=== PATIENT | female | born 1960 | race Caucasian/White ===

== ENCOUNTER 2018-11-01 21:05 | Emergency (ER) | payer OTHER ==
[~2018-11-01] VITALS: Ht 162.6 cm; Wt 79.4 kg
--- OUTSIDE RECORDS SUMMARY | 2018-11-01 21:08 | XMS REPORT ---
[facility] Address Unknown Phone Unavailable Care Team Providers Care Cloth Tester Name Role Phone Unavailable Unavailable Problems This patient has no known problems. Allergies, Adverse Reactions, Alerts This patient has no known allergies or adverse reactions. Medications This patient has no known medications. Results Test Description Test Time Test Comments Text Results Atomic Results Result Comments SCR MAMM BILATERAL MITCHELL CAD DIGITAL 2018-06-13 12:19:43 - SCR MAMM BILATERAL MITCHELL CAD DIGITALBILATERAL DIGITAL SCREENING MAMMOGRAM 3D/2D WITH CAD: 06/06/2018CLINICAL: Asymptomatic. Digital breast tomosynthesis was performed in addition to routine CC and MLO views. Current mammographic images were evaluated by either a [employer] or an [employer] version 7.2 computer aided detection system. Comparison is made to exams dated 05/13/2016 mammogram, 05/13/2015 mammogram, and 05/30/2013 mammogram - [facility]. There are scattered fibroglandular tissues in both breasts. There are benign calcifications in both breasts. There are also post operative findings in both breasts. No suspicious mass, architectural distortion, malignant type calcification, or lymph node abnormality detected. Breast architecture is stable compared to prior exams.IMPRESSION: BENIGNThere is no mammographic evidence of malignancy. Resume annual screening mammography in one year. Dolores Carter M.D. el/:06/13/2018 12:19:43 Attending Technologist: Maryanne Rain MM, [facility] Technologist: Lolita Rouse MM, [facility]ographyletter sent: BIRADS 1-2 Normal Mammogram BI-RADS: 2 Benign
[2018-11-01 22:10] VITALS: BP 110/66
== END 2018-11-01 22:28 | disposition home or self-care (01) ==
LOC: ER 21:05
DX: H81.10 Benign paroxysmal vertigo, unspecified ear (principal); T38.0X5A Adverse effect of glucocorticoids and synthetic analogues, initial encounter; I10 Essential (primary) hypertension; E78.00 Pure hypercholesterolemia, unspecified
CPT/HCPCS: 93005; 99283

== ENCOUNTER → 2020-05-13 | Outpatient (CLI) | payer OTHER ==
--- NOTE | 2020-05-14 08:52 | Diagnostic Imaging Report ---
EXAM: BONE MINERAL DENSITY HISTORY: Menopause COMPARISON: Bone density evaluation 06/10/2015 DISCUSSION: Evaluation of the left hip and lumbar spine was performed utilizing DEXA Hologic bone densitometer. The study is technically adequate. The patient's fracture risk is compared to an age-matched control. The patient denies prior surgery/fracture of the spine, hips or forearm. Left hip femoral neck bone mineral density: 0.834 g/cm2, T-score is -0.1, Z-score is 1.1. Left hip total bone mineral density: 0.96 g/cm2, T-score is 0.1, Z-score is 1. Total left hip bone mineral density is decreased by -6.2% compared to prior exam, which is statistically significant. Lumbar spine total bone mineral density: 1.194 gm/cm2, T-score is 1.3, Z-score is 2.7. Total lumbar spine bone mineral density is increased by 5.1% compared to prior exam, which is statistically significant. Impression: Bone mineralization by WHO Classification is normal, the fracture risk is not increased. Signed by: Dr. Satinder Ho M.D. on 05/14/2020 8:49 AM
== END ==
LOC: DX 15:35
PROVIDERS: ATTEND Specialist
DX: Z13.820 Encounter for screening for osteoporosis (principal); Z78.0 Asymptomatic menopausal state
CPT/HCPCS: 77080

== ENCOUNTER 2021-02-26 22:29 | Emergency (ER) | payer OTHER ==
[~2021-02-26] VITALS: Ht 162.6 cm; Wt 79.4 kg
== END 2021-02-26 23:10 | disposition home or self-care (01) ==
LOC: ER 22:51
DX: I10 Essential (primary) hypertension (principal); E78.5 Hyperlipidemia, unspecified; E78.00 Pure hypercholesterolemia, unspecified
CPT/HCPCS: 99283

== ENCOUNTER 2021-03-11 16:46 | Emergency (ER) | payer OTHER ==
[~2021-03-11] VITALS: Ht 162.6 cm; Wt 88.5 kg
[2021-03-11] MEDS ORDERED: ALPRAZOLAM0.25 MG PO (19:01)
== END 2021-03-11 19:15 | disposition home or self-care (01) ==
LOC: FSED 18:45
DX: R42 Dizziness and giddiness (principal); T45.0X5A Adverse effect of antiallergic and antiemetic drugs, initial encounter; I10 Essential (primary) hypertension; E78.5 Hyperlipidemia, unspecified; F41.9 Anxiety disorder, unspecified; E78.00 Pure hypercholesterolemia, unspecified
CPT/HCPCS: 99283